=== PATIENT | male | born 1955 ===

== ENCOUNTER → 2017-03-20 07:18 | Day surgery (SDC) | payer BC ==
--- NOTE | 2017-03-06 08:23 | HP ---
HISTORY AND PHYSICAL: DATE OF ADMISSION/SURGERY: 03/20/17 SURGERY: Left knee arthroscopy, partial medial meniscectomy, possible chondroplasty, and possible s ynovectomy. CHIEF COMPLAINT: Left knee pain. HISTORY OF PRESENT ILLNESS: Mr. Dias is a very pleasant 61-year-old gentleman, who has been suf fering from left knee pain for the past year. He underwent an MRI, which showed a tear of the media l meniscus. He has elected to undergo an arthroscopic surgery with Dr. Susannah Haynes on 03/20/17. PAST MEDICAL HISTORY: 1. History of atrial fibrillation approximately 10 years ago, no repeat episodes. 2. Generalized osteoarthritis. 3. Elevated cholesterol. PAST SURGICAL HISTORY: 1. Left inguinal hernia repair, 2014. 2. Hip resurfacing bilaterally, 2008. MEDICATIONS: Aspirin 81 mg daily p.o. ALLERGIES: No known drug allergies. FAMILY MEDICAL HISTORY: Mother with heart disease, CVA. Uncle with cancer. SOCIAL HISTORY: One glass of wine daily. No tobacco use. REVIEW OF SYSTEMS: General: Negative for fevers, chills, or night sweats. No difficulty with anes thesia. HEENT: Negative for headache, lightheadedness, or syncopal episode. Integument: Negative for abrasions, lesions, or open wounds. Cardiothoracic: Negative for chest pain, palpitations, or edema. Negative for hypertension. Pulmonary: Negative for shortness of breath with exertion, change management tonny cough, or COPD. GI: Negative for nausea, vomiting, constipation, diarrhea, or GERD. : Nega tive for nocturia, urinary frequency or urgency. No history of UTIs, no kidney problems. Musculosk eletal: Positive for generalized arthritis and positive for left knee pain. Neuro: Negative for p aresthesias, numbness. No history of seizure, stroke, or epilepsy. Endocrine: Negative for diabete s, negative for thyroid issues. Hematologic: Negative for easily bruising or anemia. No excessive bleeding. No history of DVT or PE. Infectious Disease: No history of MRSA, hepatitis C, or HIV. PHYSICAL EXAMINATION GENERAL: Well-appearing, in no acute distress. Alert and oriented x3. VITAL SIGNS: Height 67 inches, weight was 170 pounds. Pulse 58, blood pressure 130/78, respiration s 16, and temperature 96.8. Pain level 2. BMI 26.6. HEENT: Normocephalic, atraumatic. EOMI. Throat clear. NECK: Trachea midline. PULMONARY: Lungs are clear to auscultation bilaterally. No crackles, rhonchi, or wheezes. CARDIOVASCULAR: Regular rate and rhythm. No murmurs, gallops, or rubs. No edema. ABDOMEN: Soft, nontender, and nondistended. Normoactive bowel sounds. Negative CVA tenderness ari aterally. NEUROLOGIC: Alert and oriented x3, cranial nerves grossly intact. Sensation intact to light touch bilateral lower extremities. MUSCULOSKELETAL: Minimal effusion noted in the left knee. No open wounds or sores. Skin intact bi lateral lower extremities. Bilateral extremities with PT and DP pulses of 2+. Sensation grossly in tact bilateral lower extremities. Range of motion of the left knee 5 to 125 degrees. DIAGNOSTIC STUDIES: MRI dated 02/25/17 shows degenerative changes in the patellofemoral joints as well as a parrot beak-type tear in the medial meniscus. IMPRESSION: The patient is a very pleasant 61-year-old male, who is to undergo an arthroscopic eval uation by Dr. Susannah Haynes. He is required to be seen by Dr. Spencer preoperatively due to his rem ote history of atrial fibrillation. Questions and concerns regarding the procedure were discussed wi th Dr. Haynes and the patient. He will contact us if he does have any further questions or concerns. No medications were sent to the patient preoperatively. AVERY VILLAR [id number]/[facility] #: [id number]
[~2017-03-20 07:18] MED LIST: Acetaminophen TAB* 325 MG ONE; Acetaminophen TAB* 325 MG PO PRN; Buffered Lidocaine 1% SYRIN* 3 ML/SYR SYRINGE INTRADERM ONE; Bupivacaine 0.5% SDV PF* 30 ML VIAL ONE; Bupivacaine 0.5% W/EPI SDV* 30 ML VIAL ONE; Dexamethasone IV* 4 MG/ML 1 ML (4 MG) ONE; DiMENhydriNATE IV* 50 MG/ML VIAL IV PUSH PRN; EPINEPHrine AMP 1 MG/ML ONE; Famotidine IV* 10 MG/ML 2 ML (20 mg) IV ONE; Famotidine IV* 10 MG/ML 2 ML (20 mg) ONE; HYDROmorphone* 1 MG/ML 1 ML SYR IV PRN; Ketorolac INJ* 30 MG/ML 1 ML VIAL ONE; Lidocaine 2% PF * 5 ML VIAL ONE; Midazolam* 1 MG/ML 5 ML VIAL (5 MG) ONE; Ondansetron INJ* 2 MG/ML VIAL ONE; Propofol* 10 MG/ML 20 ML BTL IV PUSH ONE; ceFAZolin 2 GM PREMIX(*) 2 GM/50 ML BAG IVPB ONE; fentaNYL* 50 MCG/ML 2 ML VIAL (100 MCG VIAL) ONE; methylPREDNISolone ACETATE 80* 80 MG/ML 1 ML VIAL ONE; oxyCODONE/Acetamin 5/325 MG* TAB PO PRN
[2017-03-20 10:51] VITALS: BP 115/64
--- NOTE | 2017-03-21 02:38 | OP ---
DATE OF OPERATION: 03/20/17 - [facility] DATE OF : 51 SURGEON: Susannah Haynes MD TITLE ATTORNEY: AVERY Malagon. This sales assistant displays was used throughout the procedure for preparation, retraction, manipulation of the leg and wound closure. ANESTHESIOLOGIST: Dr. Alberto. ANESTHESIA: General. PRE-OP DIAGNOSIS: Left knee pain with osteoarthritis and medial meniscal tear. POST-OP DIAGNOSIS: Left knee severe degenerative osteoarthritis, posteromedial parrot beak tear of the medial meniscus. OPERATIVE PROCEDURE: Left knee arthroscopy with partial medial meniscectomy. EBL: Less than 25 cc. COMPLICATIONS: None. SPECIMEN: None. BRIEF HISTORY/INDICATION: Mr. Dias is an active 61-year-old gentleman with 1 year of increasingly severe left knee pain. Although he had moderate osteoarthritis on plain radiographs, his symptoms were symptoms were consistent with a meniscal tear. Parrot beak type tear of the posterior medial meniscus was confirmed on MRI. The patient failed conservative treatment with physical therapy and anti-inflammatories. He elected to undergo left knee arthroscopy with partial medial meniscectomy due to continued pain and decreased quality of life. He understood the informed consent. He understood the risks of surgery included, but were not limited to bleeding, infection, damage to nearby structures, continued pain, need for further surgery, stroke, heart attack, blood clot and . He wished to proceed. INTRAOPERATIVE FINDINGS: Intraoperatively, the patient was noted to have parrot beak type tear of the posteromedial meniscus in the white red zone. This was displaced anteriorly. He was also noted to have grade 3 and 4 Outerbridge cartilage changes in all 3 compartments of the knee with exposed subchondral bone. This was severe arthritis. DESCRIPTION OF PROCEDURE: Mr. Dias was identified in the preanesthesia unit. His left lower extremity was marked as the correct operative side. Informed consent was signed and placed in the chart. The patient was taken to the operating room and placed under general anesthesia. A tourniquet was placed on the left thigh, but was not inflated. Left lower extremity was prepped and draped in the usual sterile fashion. Preop time-out was made to correctly identify the patient's side and site. Appropriate perioperative antibiotics were given within 1 hour of incision. A standard anterolateral portal incision was made with a 15 blade. Trocar was introduced. As soon as the light and water sources were turned on, there was immediate visualization of the knee joint. A tour was made of the knee joint. Suprapatellar pouch showed no obvious abnormality. The patellofemoral compartment showed severe arthritis with grade 3 and 4 Outerbridge cartilage changes. There was exposed subchondral bone along the majority of the undersurface of the patella as well as in the trochlear groove of the femur. Medial gutters showed no obvious loose body or plica. Medial compartment showed the majority of the medial femoral condyle to have cartilage flapping and exposed subchondral bone. This was a parrot beak type tear displaced anteriorly involving the posterior 50% of the medial meniscus. ACL appeared to be intact. The knee was placed in a [id number] position. No obvious meniscal tear was noted. Lateral compartment also had grade 3 and 4 Outerbridge cartilage changes with exposed subchondral bone. Lateral gutter had no obvious abnormality. Under direct visualization, a medial portal incision was made with a 15 blade. A probe was introduced and a second tour of the knee joint was performed. No additional findings were noted. Shaver and radiofrequency ablation wand were used to remove any anterior synovitis and a better view of the joint was obtained. Straight biter and shaver were used to perform partial medial meniscectomy. This was performed mainly in the white red zone. A smooth border of the meniscus was obtained. A probe was used to ensure there were no other displaced meniscal fragments or tears. There was no significant cartilage flapping or discrete area for chondroplasty. The knee was copiously irrigated with sterile saline. All instruments were carefully removed. The incisions were closed using 3-0 nylon suture. Intraarticular injection of 80 mg of Depo-Medrol and 6 cc of 0.25% Marcaine was placed in the knee joint. Sterile Xeroform, 4x4s and Webril were used to cover the incisions. Sea wrap and cold pack were placed over this. The patient's anesthesia was reversed without difficulty. He was taken to the PACU in stable condition. Intended DVT prophylaxis will be aspirin. Intended weightbearing will be weightbearing as tolerated. [id number]/[facility] #: [id number] TARIQ
== END | disposition home or self-care (01) ==
LOC: OR 07:18
PROVIDERS: ATTEND Orthopaedic Surgery Adult Reconstructive Orthopaedic Surgery
DX: M23.204 Derangement of unspecified medial meniscus due to old tear or injury, left knee (principal); M17.12 Unilateral primary osteoarthritis, left knee; E78.00 Pure hypercholesterolemia, unspecified
CPT/HCPCS: A9270-GY; J0171; J0690; J1040; J1100; J1885; J2250; J2405; J2704; J3010